=== PATIENT | male | born 1945 | race Caucasian/White ===

== ENCOUNTER → 2021-01-24 09:40 | Outpatient (BNVA) | payer MEDICARE, OTHER, SELFPAY | PROVIDERS: Visit Provider Urology | DX: R35.1 Nocturia (principal); C67.9 Malignant neoplasm of bladder, unspecified | CPT/HCPCS: 52000; 99212 ==

== ENCOUNTER 2022-02-21 13:19 | Outpatient (REF) | payer MEDICARE, OTHER, SELFPAY ==
[2022-02-21 16:34] LABS: Urine Cytology See Pathology rpt
== END 2022-02-21 13:20 | disposition home or self-care (01) ==
LOC: HO.LAB 13:19
PROVIDERS: Visit Provider Urology
DX: C67.9 Malignant neoplasm of bladder, unspecified (principal); R35.1 Nocturia
CPT/HCPCS: 52000; 88112; 99212